=== PATIENT | female | born 1950 | race Caucasian/White ===

== ENCOUNTER 2016-12-07 08:00 | Outpatient (CLI) | payer MEDICARE, BC | END 2016-12-07 08:01 | disposition home or self-care (01) | DX: R25.1 Tremor, unspecified (principal); E72.11 Homocystinuria; I49.3 Ventricular premature depolarization ==

== ENCOUNTER 2016-12-12 10:17 | Outpatient (CLI) | payer MEDICARE, BC | END 2016-12-12 10:18 | disposition home or self-care (01) | DX: M81.0 Age-related osteoporosis without current pathological fracture (principal); N95.8 Other specified menopausal and perimenopausal disorders ==

== ENCOUNTER 2017-06-28 11:47 | Outpatient (CLI) | payer MEDICARE, BC ==
--- NOTE | 2017-06-29 11:48 | Mammography Report ---
DIGITAL SCREENING LEFT MAMMOGRAM: 06/28/2017 CLINICAL INDICATION: A 67-year-old with history of late childbearing, personal history of right breas t cancer, status post mastectomy. TECHNIQUE: Left CC, laterally exaggerated CC, and MLO views were obtained. COMPARISON: 06/2016, 04/2015, 04/2014, 04/2013, 01/2011. FINDINGS: The left breast again demonstrates heterogeneously dense fibroglandular parenchyma. Coarse , typically benign calcifications are present. No suspicious masses, clustered microcalcifications, o r regions of architectural distortion are identified. IMPRESSION: BENIGN FINDINGS. RECOMMENDATION: ROUTINE ANNUAL SCREENING UNLESS OTHERWISE CLINICALLY INDICATED. BIRADS CATEGORY 2-BENIGN FINDINGS. STANDARD QUALIFYING STATEMENTS 1. This examination was reviewed with the aid of Computer-Aided Detection (CAD). 2. A negative or benign imaging report should not delay biopsy if clinically suspicious findings are present. Consider surgical consultation if warranted. More than 5% of cancers are not identified by i maging. 3. Dense breasts may obscure an underlying neoplasm. JOB #: [id number] EXT JOB #:[id number]
== END 2017-06-28 11:48 | disposition home or self-care (01) ==
LOC: DI.S 11:47
PROVIDERS: ATTEND Physician Assistant
DX: Z12.31 Encounter for screening mammogram for malignant neoplasm of breast (principal); Z85.3 Personal history of malignant neoplasm of breast; Z08 Encounter for follow-up examination after completed treatment for malignant neoplasm

== ENCOUNTER 2018-01-05 12:57 | Outpatient (CLI) | payer MEDICARE, BC ==
--- NOTE | 2018-01-08 15:52 | DEXA Report ---
DEXA SCAN: 01/05/2018 CLINICAL INDICATION: Osteoporosis. TECHNIQUE: Dual energy x-ray absorptiometry (DXA) was performed on a [employer] system. Regions measured are the AP spine, femoral neck, and, if needed, forearm. COMPARISON: 12/12/2016. In accordance with the International Society for Clinical Densitometry (ISCD) guidelines, data from previous exams may be reanalyzed using current recommendations and techniques. This is done to allow a more accurate basis for comparison with the current study. FINDINGS Data for the lumbar spine is as follows: REGION BMD (g/cm/cm) T-SCORE Z-SCORE L1 0.829 -2.5 -1.0 L2 0.849 -2.9 -1.4 L3 0.952 -2.1 -0.5 L4 1.009 -1.6 -0.1 L1-L4 0.923 -2.1 -0.6 NOTE: All evaluable vertebrae are used for classification. Data for the hip is as follows: REGION BMD (g/cm/cm) T-SCORE Z-SCORE Neck 0.690 -2.5 -1.0 TOTAL 0.799 -1.7 -0.4 NOTE: The femoral neck or total proximal femur, whichever is lowest, is used for classification. DEXA RESULTS SUMMARY: Spine SCAN DATE AGE BMD T-SCORE BMD CHANGE VS BASELINE BMD CHANGE VS PREVIOUS 01[age]05/2018 [age] 0.923 -- 0.046* 5.2* 12/12/2016 [age] 0[age]877 -- -- -- * Denotes significant change at the 95% confidence level. Denotes dissimilar scan types or analysis methods. DEXA RESULTS SUMMARY: Total hip SCAN DATE AGE BMD T-SCORE BMD CHANGE VS BASELINE BMD CHANGE VS PREVIOUS 01/05/2018 67.7 0.799 -- 0.022 2.8 12/12/2016 66.7 0.777 -- -- -- * Denotes significant change at the 95% confidence level. Denotes dissimilar scan types or analysis methods. IMPRESSION 1. WHO CLASSIFICATION BASED ON THE INTERNATIONAL REFERENCE STANDARD IS OSTEOPOROSIS (REFERENCE LEFT FEMORAL NECK). FRACTURE RISK IS HIGH. 2. THERE HAS BEEN STATISTICALLY SIGNIFICANT INTERVAL INCREASE IN BONE MINERAL DENSITY OF THE LUMBAR SPINE FROM 12/12/2016. NO STATISTICALLY SIGNIFICANT INTERVAL CHANGE IN BONE MINERAL DENSITY OF THE LEFT HIP. RECOMMENDATION: Patients with diagnosis of osteoporosis or osteopenia should have regular bone mineral density assessment. For those eligible for Medicare, routine testing is allowed once every 2 years. Testing frequency can be increased for patients who have rapidly progressing disease or for those who are receiving medical therapy to restore bone mass. COMMENT World Health Organization (WHO) definitions for osteoporosis and osteopenia: NORMAL BMD: T-score at 1.0 or higher, fracture risk is low. OSTEOPENIA BMD: T-score between 1.0 and -2.5, fracture risk is increased. OSTEOPOROSIS BMD: T-score at 2.5 or lower, fracture risk high. National Osteoporosis Foundation recommends: 1. Obtain adequate dietary calcium (at least 1200 mg per day) and vitamin D (400 -800 international units per day). 2. Participate, as appropriate, in regular weightbearing and muscle- strengthening exercise. 3. Avoid tobacco use and reduce alcohol and caffeine intake. 4. For more detailed information see the website at www.NOF.org. TD: 01/05/2018 16:02 ARISTIDES
== END 2018-01-05 12:58 | disposition home or self-care (01) ==
LOC: DI 12:57
PROVIDERS: ATTEND Physician Assistant
DX: M81.0 Age-related osteoporosis without current pathological fracture (principal)
CPT/HCPCS: 77080

== ENCOUNTER 2018-04-19 09:35 | Day surgery (SDC) | payer MEDICARE, BC ==
[~2018-04-19 09:35] MED LIST: BRIMONIDINE 0.2% OPHTH DROPS 5 ML ONE; BSS/LIDOCAINE/EPINEPHRINE 1 ML SYRINGE ONE; EPINEPHrine 1 MG/ML AMP ONE; TIMOLOL 0.5% OPHTH DROPS ONE; TRIAMCIN/MOXIFLOX OPHTHALMIC 0.6 ML VIAL IO ONE; VANCOMYCIN OPHTHALMI 8MG/0.8ML 8 MG/0.8 ML SYRINGE IO ONE
[2018-04-19] MEDS ORDERED: KETOROLAC 0.45% OPHTH DROPS ONE (10:35)
[2018-04-19] MEDS ORDERED: PHENYLEPHRINE 2.5% OPHTH 2 ML DROPS ONE (10:35)
[2018-04-19] MEDS ORDERED: PROPARACAINE 0.5% OPHTH DROPS 15 ML ONE (10:36)
[2018-04-19] MEDS ORDERED: CYCLOPENTOLATE 1% OPHTH DROPS 2 ML ONE (10:40)
[2018-04-19] MEDS ORDERED: KETOROLAC 0.45% OPHTH DROPS RIGHTEYE ONE (10:44)
[2018-04-19] MEDS ORDERED: CYCLOPENTOLATE 1% OPHTH DROPS 2 ML RIGHTEYE ONE (10:44)
[2018-04-19] MEDS ORDERED: PHENYLEPHRINE 2.5% OPHTH 2 ML DROPS RIGHTEYE ONE (10:44)
[2018-04-19] MEDS ORDERED: PROPARACAINE 0.5% OPHTH DROPS 15 ML RIGHTEYE ONE ×2 (10:44→12:00)
[2018-04-19] MEDS ORDERED: LACTATED RINGERS 500 ML IV ONE (11:01)
[2018-04-19] MEDS ORDERED: TRIAMCIN/MOXIFLOX OPHTHALMIC 0.6 ML VIAL IO ONE (11:59)
[2018-04-19] MEDS ORDERED: CHONDR SULF/HYALURONATE SYRINGE IO ONE (12:00)
[2018-04-19] MEDS ORDERED: BRIMONIDINE 0.2% OPHTH DROPS 5 ML OPTH ONE (12:00)
[2018-04-19] MEDS ORDERED: EPINEPHrine 1 MG/ML AMP IR ONE (12:00)
[2018-04-19] MEDS ORDERED: TIMOLOL 0.5% OPHTH DROPS OPTH ONE (12:00)
[2018-04-19] MEDS ORDERED: BSS/LIDOCAINE/EPINEPHRINE 1 ML SYRINGE IO ONE (12:04)
[2018-04-19] MEDS ORDERED: MIDAZOLAM 2 MG/2 ML VIAL IVP ONE (12:08)
--- NOTE | 2018-04-19 12:37 | OPERATIVE REPORT ---
DATE OF SERVICE: 04/19/2018 Physician: Rey Haro MD PREOPERATIVE DIAGNOSIS: Visually significant cataract, right eye. This was her first cataract surgery. POSTOPERATIVE DIAGNOSIS: Visually significant cataract, right eye. PROCEDURE: Phacoemulsification with posterior chamber intraocular lens implant , right eye. SURGEON: Rey Haro MD. ANESTHESIA: Monitored anesthesia care. COMPLICATIONS: None. OPERATIVE INDICATIONS: This is a 68-year-old woman with progressive vision loss in the right eye due to 2+ nuclear sclerotic and 3+ cortical cataract. Best corrected visual acuity was 20/25 with glare to 20/100 in the right eye. INDICATIONS FOR SURGERY 1. Difficulty seeing words, closed captions, or game scores on TV. 2. Difficulty driving in low light or at night. 3. Difficulty with glare or bright lights in any situation. INFORMED CONSENT: She was consented at length concerning risks and benefits of cataract surgery, after which she expressed a desire to proceed with surgery. OPERATIVE PROCEDURE: The patient was taken into OR #3 and placed under monitored anesthesia care. A surgical timeout was conducted confirming correct patient, correct procedure, and correct surgical site. She was given topical anesthesia, then prepped and draped in usual sterile fashion. The eye was entered at the 12 and 9-o'clock positions. Intracameral Shugarcaine was injected into the anterior chamber, followed by Viscoat. A continuous-tear curvilinear capsulorrhexis was performed. The nucleus was hydrodissected and phacoemulsified. The cortex was evacuated using automated infusion aspiration. Provisc was injected in the capsular bag, and a 21.5-diopter intraocular lens inserted in the bag. Approximately 0.4 mL of vancomycin was injected subconjunctivally in the superior quadrant for infection and inflammation prophylaxis. The patient is also taking topical antibiotics and steroid drops for the same indication. I and A was used to evacuate the viscoelastic material. The eye was inflated to physiologic pressure using a balanced salt solution and found to be watertight. The patient was taken from the operating room in good condition and given postoperative instructions. TD: 04/19/2018 12:22 [facility]
[2018-04-19 12:46] VITALS: BP 132/81
== END 2018-04-19 09:36 | disposition home or self-care (01) ==
LOC: SDS 09:35
PROVIDERS: ATTEND Ophthalmology
PROC: 08RJ3JZ Replacement of Right Lens with Synthetic Substitute, Percutaneous Approach (ICD-10-PCS; principal; 2018-04-19 11:00)
DX: H25.811 Combined forms of age-related cataract, right eye (principal)
CPT/HCPCS: 66984; A9270; J3490; V2632

== ENCOUNTER 2018-05-17 06:05 | Day surgery (SDC) | payer MEDICARE, BC ==
[2018-05-17] MEDS ORDERED: PHENYLEPHRINE 2.5% OPHTH 2 ML DROPS ONE (06:34)
[2018-05-17] MEDS ORDERED: KETOROLAC 0.45% OPHTH DROPS ONE (06:34)
[2018-05-17] MEDS ORDERED: CYCLOPENTOLATE 1% OPHTH DROPS 2 ML ONE (06:34)
[2018-05-17] MEDS ORDERED: PROPARACAINE 0.5% OPHTH DROPS 15 ML ONE (06:35)
[2018-05-17] MEDS ORDERED: PROPARACAINE 0.5% OPHTH DROPS 15 ML LEFTEYE ONE ×2 (06:40→07:27)
[2018-05-17] MEDS ORDERED: CYCLOPENTOLATE 1% OPHTH DROPS 2 ML LEFTEYE ONE (06:40)
[2018-05-17] MEDS ORDERED: PHENYLEPHRINE 2.5% OPHTH 2 ML DROPS LEFTEYE ONE (06:40)
[2018-05-17] MEDS ORDERED: KETOROLAC 0.45% OPHTH DROPS LEFTEYE ONE (06:40)
[2018-05-17] MEDS ORDERED: LACTATED RINGERS 500 ML IV ONE (06:57)
[2018-05-17] MEDS ORDERED: TIMOLOL 0.5% OPHTH DROPS ONE (07:09)
[2018-05-17] MEDS ORDERED: EPINEPHrine 1 MG/ML AMP ONE (07:09)
[2018-05-17] MEDS ORDERED: BRIMONIDINE 0.2% OPHTH DROPS 5 ML ONE (07:09)
[2018-05-17] MEDS ORDERED: TRIAMCIN/MOXIFLOX OPHTHALMIC 0.6 ML VIAL IO ONE (07:09)
[2018-05-17] MEDS ORDERED: VANCOMYCIN OPHTHALMI 8MG/0.8ML 8 MG/0.8 ML SYRINGE IO ONE (07:10)
[2018-05-17] MEDS ORDERED: BSS/LIDOCAINE/EPINEPHRINE 1 ML SYRINGE ONE (07:10)
[2018-05-17] MEDS ORDERED: EPINEPHrine 1 MG/ML AMP IR ONE (07:25)
[2018-05-17] MEDS ORDERED: BRIMONIDINE 0.2% OPHTH DROPS 5 ML OPTH ONE (07:25)
[2018-05-17] MEDS ORDERED: BSS/LIDOCAINE/EPINEPHRINE 1 ML SYRINGE IO ONE (07:26)
[2018-05-17] MEDS ORDERED: CHONDR SULF/HYALURONATE SYRINGE IO ONE (07:26)
[2018-05-17] MEDS ORDERED: TIMOLOL 0.5% OPHTH DROPS OPTH ONE (07:26)
[2018-05-17] MEDS ORDERED: MIDAZOLAM 2 MG/2 ML VIAL IVP ONE (07:30)
[2018-05-17 07:52] VITALS: BP 117/59
--- NOTE | 2018-05-17 10:46 | OPERATIVE REPORT ---
DATE OF SERVICE: 05/17/2018 Physician: Rey Haro MD PREOPERATIVE DIAGNOSIS: Visually significant cataract, left eye. Cataract surgery was performed on the right eye on 04/19/2018. POSTOPERATIVE DIAGNOSIS: Visually significant cataract, left eye. Cataract surgery was performed on the right eye on 04/19/2018. PROCEDURE: Phacoemulsification with posterior chamber intraocular lens implant , left eye. SURGEON: Rey Haro MD ANESTHESIA: Monitored anesthesia care. COMPLICATIONS: None. OPERATIVE INDICATIONS: This is a 68-year-old woman with progressive vision loss in the left eye due to 2+ nuclear sclerotic and 3+ cortical cataract. Best corrected visual acuity was 20/25 with glare to 20/80 in the left eye. Indications for surgery were difficulty reading; difficulty seeing words closed caption, game scores on TV, and difficulty driving in low light or at night. She was consented at length concerning risks and benefits of cataract surgery. Afterward, she expressed a desire to proceed with surgery. OPERATIVE PROCEDURE: The patient was taken into OR #3 and placed under monitored anesthesia care. Surgical timeout was conducted, confirming correct patient, correct procedure, and correct surgical site. She was given topical anesthesia and prepped and draped in usual sterile fashion. The eye was entered at the 6 and 3 o'clock positions. Intracameral Shugarcaine was injected into the anterior chamber, followed by Viscoat. A continuous-tear curvilinear capsulorrhexis was performed. The nucleus was hydrodissected and phacoemulsified. The cortex was evacuated using automated infusion and aspiration. Provisc was injected in the capsular bag, and a 21.0 diopter intraocular lens inserted in the bag. I and A was used to evacuate the viscoelastic material. This eye was inflated to physiologic pressure using balanced salt solution and found to be watertight. The patient was taken from the operating room in good condition and given postoperative instructions. The patient had elected not to have subconjunctival injection of antibiotics and steroid, but instead is using drops 4 times a day starting the day before surgery. TD: 05/17/2018 07:55 MTDD
== END 2018-05-17 06:06 | disposition home or self-care (01) ==
LOC: SDS 06:05
PROVIDERS: ATTEND Ophthalmology
PROC: 08RK3JZ Replacement of Left Lens with Synthetic Substitute, Percutaneous Approach (ICD-10-PCS; principal; 2018-05-17 07:30)
DX: H25.812 Combined forms of age-related cataract, left eye (principal); H18.51 Endothelial corneal dystrophy
CPT/HCPCS: 66984; A9270; J3490; V2632

== ENCOUNTER 2018-07-25 13:07 | Outpatient (CLI) | payer MEDICARE, BC ==
--- NOTE | 2018-07-26 08:37 | Mammography Report ---
Reason: SCREENING MAMMO Procedure Date: 07/25/2018 Accession Number: [id number] / [id number] Procedure: DARIA - Screening Mammo Left w/Alex CPT Code: FULL RESULT: EXAM: Screening Mammo Left w/Alex DATE: 07/25/2018 1:35 PM CLINICAL HISTORY: 68-year-old female with history of late childbearing and right mastectomy. TECHNIQUE: Left CC and MLO views were obtained. COMPARISON: 06/28/2017, 06/21/2016, 05/11/2015, 05/05/2014. FINDINGS: The breasts demonstrate heterogeneously dense fibroglandular parenchyma bilaterally. Coarse typically benign calcifications are again identified. No suspicious masses, clustered microcalcifications, or regions of architectural distortion are identified. IMPRESSION: Benign findings RECOMMENDATION: Routine annual screening unless otherwise clinically indicated. BIRADS CATEGORY 2: Benign findings STANDARD QUALIFYING STATEMENTS: 1. This examination was not reviewed with the aid of Computer-Aided Detection (CAD). 2. A negative or benign imaging report should not delay biopsy if clinically suspicious findings are present. Consider surgical consultation if warrented. More than 5% of cancers are not identified by imaging. 3. Dense breasts may obscure an underlying neoplasm. 4. This examination was reviewed with the aid of 3D breast imaging (tomosynthesis).
== END 2018-07-25 13:08 | disposition home or self-care (01) ==
LOC: DI 13:07
DX: Z12.31 Encounter for screening mammogram for malignant neoplasm of breast (principal)
CPT/HCPCS: 77063

== ENCOUNTER 2018-12-20 12:00 | Outpatient (CLI) | payer MEDICARE, BC ==
--- NOTE | 2018-12-20 13:52 | MRI Report ---
Reason: PARKINSONS DISEASE,GAIT DIFFICULTY Procedure Date: 12/20/2018 Accession Number: [id number] / [id number] Procedure: MRI - Cervical Spine W/O CPT Code: FULL RESULT: EXAM: MRI CERVICAL SPINE WITHOUT CONTRAST EXAM DATE: 12/20/2018 01:05 PM. CLINICAL HISTORY: 68-year-old with history of Parkinson's disease presenting with gait difficulty and hyperreflexia. Evaluate for cervical pathology. COMPARISONS: None. TECHNIQUE: Multiplanar, multisequence T1-weighted and fluid-sensitive sequences of the cervical spine without contrast. Other: None. FINDINGS: Neurologic Structures: The visualized posterior fossa structures are unremarkable. There is flattening of the ventral aspect of the cervical cord seen at C5-C6 with no definite T2 signal hyperintensity seen within the cord at this level. Alignment: No scoliosis or spondylolisthesis. Bone Marrow: No acute fracture. There is minimal Modic type I changes seen at C5-C6 and C6-C7 that may be degenerative in nature. No abnormal marrow replacing lesion. Interspace Levels/Facets: Mild endplate degenerative change with mild loss of disk height and disk desiccation seen throughout the cervical spine. C1-C2: Unremarkable. C2-C3: Tiny to small right paracentral disk osteophyte complex. Left uncovertebral osteophyte and arthritic facet disease. No spinal canal stenosis. No definite neural foraminal narrowing. C3-C4: Tiny central disk osteophyte complex. Bilateral uncovertebral osteophyte and arthritic facet disease. No significant spinal canal stenosis. No definite neural foraminal narrowing. C4-C5: Small central disk osteophyte complex that abuts the ventral aspect of the cervical cord. Ligamentum flavum thickening. Bilateral uncovertebral osteophyte and arthritic facet disease. Moderate spinal canal stenosis. Mild to moderate bilateral neural foraminal narrowing. C5-C6: Central to left subarticular disk osteophyte complex. Ligamentum flavum thickening. Bilateral uncovertebral osteophyte and arthritic facet disease. Moderate spinal canal stenosis. Severe bilateral neural foraminal narrowing. C6-C7: Small broad-based disk osteophyte complex. Bilateral uncovertebral osteophyte and arthritic facet disease. Mild spinal canal stenosis. Mild bilateral neural foraminal narrowing. C7-T1: Unremarkable. Musculature: Normal. No edema or fatty atrophy. Other: T2 hyperintense lesion seen within the inferior left thyroid lobe measuring up to 5 mm (series 801, image 4). T2 hyperintense lesion seen within the right base of tongue projecting into the right vallecula measuring 7 x 5 x 5 mm (cc by TR by AP). IMPRESSION: 1. There is flattening of the ventral aspect of the cervical cord seen at C5-C6 with no definite T2 signal hyperintensity seen within the cord at this level. 2. Multilevel degenerative changes. C4-C5: Moderate spinal canal stenosis. Mild to moderate bilateral neural foraminal narrowing. C5-C6: Moderate spinal canal stenosis. Severe bilateral neural foraminal narrowing. C6-C7: Mild spinal canal stenosis. Mild bilateral neural foraminal narrowing. 3. T2 hyperintense lesion seen within the right base of tongue projecting into the right vallecula measuring 7 x 5 x 5 mm (cc by TR by AP). Finding may represent mucosal retention cyst or salivary cyst. Clinical correlation with direct visualization would be of use. RADIA
== END 2018-12-20 12:01 | disposition home or self-care (01) ==
LOC: DI 12:00
PROVIDERS: ATTEND Psychiatry & Neurology Neurology
DX: M50.31 Other cervical disc degeneration, high cervical region (principal); M48.02 Spinal stenosis, cervical region; G20 Parkinson's disease; R26.9 Unspecified abnormalities of gait and mobility; M47.9 Spondylosis, unspecified; K14.9 Disease of tongue, unspecified
CPT/HCPCS: 72141

== ENCOUNTER 2019-10-17 09:47 | Outpatient (CLI) | payer MEDICARE, BC ==
--- NOTE | 2019-10-18 11:15 | Mammography Report ---
Reason: SCREENING MAMMOGRAM Procedure Date: 10/17/2019 Accession Number: [id number] / [id number] Procedure: MGS - Screening Mammo Dig LT CPT Code: Final Report FULL RESULT: EXAM: Screening Mammo Dig LT DATE: 10/17/2019 10:07 AM CLINICAL HISTORY: Screening encounter. History of late childbearing and personal breast cancer history status post right mastectomy in 2012. TECHNIQUE: (L) - Left CC, laterally exaggerated CC, MLO views were obtained. COMPARISON: 07/25/2018 through 02/11/2011. PARENCHYMAL PATTERN: (D) - The breast(s) demonstrate(s) heterogeneously dense fibroglandular parenchyma. FINDINGS: There are no suspicious masses, calcifications, or areas of distortion. IMPRESSION: Negative examination. BI-RADS category 1. RECOMMENDATION: (ANNUAL) - Recommend routine annual screening mammography. BI-RADS CATEGORY: (1) - Negative. STANDARD QUALIFYING STATEMENTS: 1. This examination was reviewed with the aid of Computer-Aided Detection (CAD). 2. A negative or benign imaging report should not preclude biopsy if clinically suspicious findings are present. 3. Dense breasts may obscure an underlying neoplasm. 4. This examination was reviewed without the aid of 3D breast imaging (tomosynthesis).
== END 2019-10-17 09:48 | disposition home or self-care (01) ==
LOC: DI.S 09:47
PROVIDERS: ATTEND Physician Assistant
DX: Z12.31 Encounter for screening mammogram for malignant neoplasm of breast (principal); Z85.3 Personal history of malignant neoplasm of breast; Z90.11 Acquired absence of right breast and nipple

== ENCOUNTER 2019-12-26 10:10 | Outpatient (CLI) | payer MEDICARE, BC ==
--- NOTE | 2019-12-27 10:27 | DEXA Report ---
Reason: AGE RELATED OSTEOPOROSIS W/O Procedure Date: 12/26/2019 Accession Number: [id number] / [id number] Procedure: DEX - Dexa Spine and/or Hip CPT Code: Final Report FULL RESULT: EXAM: Dexa Spine and/or Hip DATE: 12/26/2019 10:45 AM CLINICAL HISTORY: AGE RELATED OSTEOPOROSIS W/O TECHNIQUE: Dual energy x-ray absorptiometry (DXA) was performed on a [employer] System. Regions measured are the AP Spine, femoral neck, and if needed forearm. COMPARISON: 01/05/2018 and 12/12/2016. In accordance with the International Society for Clinical Densitometry (ISCD) guidelines, data from previous exams may be reanalyzed using current recommendations and techniques. This is done to allow a more accurate basis for comparison with the current study. FINDINGS: The data for the lumbar spine is as follows: BMD (g/cm/cm) T-SCORE Z-SCORE REGION L1 0.770 -3.0 -1.4 L2 0.833 -3.1 -1.5 L3 0.925 -2.3 -0.7 L4 0.994 -1.7 -0.2 TOTAL 0.893 -2.4 -0.8 NOTE: All evaluable vertebrae are used for classification The data for the hip is as follows: BMD (g/cm/cm) T-SCORE Z-SCORE REGION Neck 0.640 -2.9 -1.2 TOTAL 0.741 -2.1 -0.7 NOTE: The femoral neck or total proximal femur, whichever is lowest, is used for classification. DXA RESULTS SUMMARY: Spine SCAN DATE AGE BMD CHANGE VS CHANGE VS PREVIOUS PREVIOUS % 11/26/2019 [age] 0.893 -0.030* -3.3* 01/05/2018 67.7 0.923 0.046 5.2 12/12/2016 66.7 0.877 * Denotes significant change at the 95% confidence level. Denotes dissimilar scan types or analysis methods. DXA RESULTS SUMMARY: Hip SCAN DATE AGE BMD CHANGE VS CHANGE VS PREVIOUS PREVIOUS % 12/26/2019 69.7 0.741 -0.058* -7.3* 01/05/2018 67.7 0.799 0.022 2.8 12/12/2016 [age] 0.777 * Denotes significant change at the 95% confidence level. Denotes dissimilar scan types or analysis methods. IMPRESSION: THE WHO CLASSIFICATION BASED ON THE INTERNATIONAL REFERENCE STANDARD IS OSTEOPOROSIS. THE FRACTURE RISK IS HIGH. Please note that interval decrease in bone density in the hip and spine are statistically significant. RECOMMENDATION: Patients with diagnosis of osteoporosis or osteopenia should have regular bone mineral density assessment. For those eligible for Medicare, routine testing is allowed once every 2 years. Testing frequency can be increased for patients who have rapidly progressing disease or for those who are receiving medical therapy to restore bone mass. COMMENT: World Health Organization (WHO) definitions for osteoporosis and osteopenia: NORMAL BMD: T-score at -1.0 or higher, fracture risk is low OSTEOPENIA BMD: T-score between -1.0 and -2.5, fracture risk is increased. OSTEOPOROSIS BMD: T-score at -2.5 or lower, fracture risk is high. National Osteoporosis Foundation recommends: 1. Obtain adequate dietary calcium (at least 1200 mg per day) and vitamin D (400-800 international units per day). 2. Participate, as appropriate, in regular weightbearing and muscle-strengthening exercise. 3. Avoid tobacco use and reduce alcohol and caffeine intake. 4. For more detailed information see the website at www.NOF.org.
== END 2019-12-26 10:11 | disposition home or self-care (01) ==
LOC: DI 10:10
PROVIDERS: ATTEND Physician Assistant
DX: M81.0 Age-related osteoporosis without current pathological fracture (principal)
CPT/HCPCS: 77080

== ENCOUNTER 2021-02-02 12:48 | Outpatient (CLI) | payer MEDICARE, BC ==
--- NOTE | 2021-02-04 11:13 | Mammography Report ---
UNILATERAL LEFT DIGITAL SCREENING MAMMOGRAM 3D/2D: 02/02/2021 CLINICAL: Routine screening. Personal history of right breast cancer. Comparison is made to exams dated: 10/17/2019 mammogram, 07/25/2018 mammogram, and 06/28/2017 mammogram - [facility]. The tissue of left breast is heterogeneously dense. This may lower the sensitivity of mammography. No significant masses, calcifications, or other findings are seen in the breast. There has been no significant interval change. IMPRESSION: NEGATIVE There is no mammographic evidence of malignancy. A 1 year screening mammogram is recommended. This exam was interpreted at Station ID: [id number]. NOTE: For mammograms, a report in lay terms will be sent to the patient. Approximately 15% of breast malignancies will not be visualized mammographically. In the management of a palpable breast mass, a negative mammogram must not discourage biopsy of a clinically suspicious lesion. Electronically Signed By: Chalo Pizarro M.D. ar/penrad:02/03/2021 13:20:18 ACR BI-RADS Category 1: Negative 3341F PARENCHYMAL PATTERN: (D) - The breast(s) demonstrate(s) heterogeneously dense fibroglandular loyda cox. BI-RADS CATEGORY: (1) - 1 RECOMMENDATION: (ANNUAL) - Recommend routine annual screening mammography. [id number] 1 year screening LATERALITY: (B)
== END 2021-02-02 12:49 | disposition home or self-care (01) ==
LOC: DI.S 12:48
PROVIDERS: ATTEND Physician Assistant
DX: Z12.31 Encounter for screening mammogram for malignant neoplasm of breast (principal); Z85.3 Personal history of malignant neoplasm of breast

== ENCOUNTER 2021-07-17 09:31 | Outpatient (CLI) | payer MEDICARE, BC ==
[2021-07-17] MEDS ORDERED: IOVERSOL 320 100 ML VIAL IVP ONE ×2 (09:43→11:00)
[2021-07-17] MEDS ORDERED: IOVERSOL 320 50 ML VIAL ONE (09:43)
[2021-07-17] MEDS ORDERED: IOVERSOL 320 50 ML VIAL PO ONE (11:00)
--- NOTE | 2021-07-17 19:29 | CT Report ---
PROCEDURE: Abdomen/Pelvis W INDICATIONS: ABD PAIN CONTRAST: IV CONTRAST: Optiray 320 ml: 100 PO CONTRAST: Optiray 320 ml50 TECHNIQUE: After the administration of contrast, 5 mm thick sections acquired from the diaphragms to the sym physis. 5 mm thick coronal and sagittal reformats were acquired. For radiation dose reduction, the following was used: automated exposure control, adjustment of mA and/or kV according to patient size . COMPARISON: None. FINDINGS: Image quality: Excellent. ABDOMEN: Lung bases: Minimal platelike atelectasis or scarring in both lung bases. Heart size is normal. Solid organs: Liver and spleen are normal in size and enhancement. Gallbladder shows cholelithiasis without CT evidence of acute cholecystitis. Biliary system is non dilated. Pancreas enhances shaheed lly. No adrenal nodules. Nonobstructive bilateral renal calculi measuring up to 4 mm. Bilateral extr arenal pelvis noted. No hydronephrosis. Peritoneum and bowel: Bowel loops demonstrate normal wall th ickness and caliber. No free fluid or air. Nodes and vessels: No retroperitoneal or mesenteric adenopathy by size criteria. Aorta and inferior vena cava are normal in size. Miscellaneous: No ventral hernias. PELVIS: Genitourinary: Bladder wall thickness is normal. Nonobstructive venous thrombosis noted in several left-sided uterine veins, best depicted on image 6/18 coronal. Slight instillation could reflect pelv ic congestion syndrome. Miscellaneous: No inguinal hernias or adenopathy. Bones: No suspicious bony lesions. No vertebral body compression fractures. IMPRESSION: 1. No evidence of vascular lesion. No acute findings. 2. Incidental nonocclusive venous thrombosis left sided uterine veins. Several dilated uterine veins bilaterally could reflect pelvic congestion syndrome. 3. Cholelithiasis without CT evidence of acute cholecystitis Reviewed by: Jason Murray MD on 07/17/2021 6:27 PM AKDAVID Approved by: Jason Murray MD on 07/17/2021 6:27 PM AKDAVID Station ID: [id number]
== END 2021-07-17 09:32 | disposition home or self-care (01) ==
LOC: DI 09:31
PROVIDERS: ATTEND Registered Nurse
DX: K80.20 Calculus of gallbladder without cholecystitis without obstruction (principal)
CPT/HCPCS: 74177; Q9967

== ENCOUNTER 2021-07-20 12:44 | Outpatient (CLI) | payer MEDICARE, BC ==
--- NOTE | 2021-07-21 12:29 | DEXA Report ---
PROCEDURE: Dexa Spine and/or Hip INDICATIONS: OSTEOPOROSIS TECHNIQUE: Dual energy x-ray absorptiometry (DXA) was performed on a [employer] System. Regions measur ed are the AP Spine, femoral neck, and if needed forearm. COMPARISON: 12/26/2019, 01/05/2018. FINDINGS: Lumbar Spine: Bone Mineral Density L1-L4 0.898 g/cm/cm,T score: -2.4, Z score: -0.7 Left Hip: Bone Mineral Density 0.758 g/cm/cm,T score: -2.0, Z score: -0.5 Left Femoral Neck: Bone Mineral Density 0.625 g/cm/cm, T score: -3.0, Z score: -1.2 (T score greater or equal to -1.0: NORMAL) (T score from -1.1 to -2.4: OSTEOPENIA) (T score less than or equal to -2.5 to: OSTEOPOROSIS) Impression: 1. Findings consistent with osteoporosis in the left femoral neck and osteopenia in the spine redemon strated. No significant interval change compared to the prior study. Patients with diagnosis of osteoporosis or osteopenia should have regular bone mineral density assess ment. For those eligible for Medicare, routine testing is allowed once every 2 years. Testing frequ ency can be increased for patients who have rapidly progressing disease or for those who are receivin g medical therapy to restore bone mass. Reviewed by: Jake Arthur MD on 07/21/2021 12:28 PM PDT Approved by: Jake Arthur MD on 07/21/2021 12:28 PM PDT Station ID: [id number]
== END 2021-07-20 12:45 | disposition home or self-care (01) ==
LOC: DI 12:44
PROVIDERS: ATTEND Registered Nurse
DX: M81.0 Age-related osteoporosis without current pathological fracture (principal)

== ENCOUNTER 2023-05-17 08:45 | Outpatient (CLI) | payer MEDICARE, BC ==
--- NOTE | 2023-05-18 09:20 | Mammography Report ---
UNILATERAL LEFT DIGITAL SCREENING MAMMOGRAM 3D/2D WITH EXAGGERATED CC: 05/17/2023 CLINICAL: Routine screening. Personal history of right breast cancer. Comparison is made to exams dated: 05/24/2022 mammogram, 02/02/2021 mammogram, 10/17/2019 mammogram, and 07/25/2018 mammogram - [facility]. The left breast is heterogeneously dense, which may obscure small masses (category c / 51-75% glandul ar tissue). No significant masses, calcifications, or other findings are seen in the breast. There has been no significant interval change. IMPRESSION: NEGATIVE There is no mammographic evidence of malignancy. A 1 year screening mammogram is recommended. Future imaging is recommended as follows: 05/25/2023 screening mammogram. This exam was interpreted at Station ID: [id number]. NOTE: For mammograms, a report in lay terms will be sent to the patient. Approximately 15% of breast malignancies will not be visualized mammographically. In the management of a palpable breast mass, a negative mammogram must not discourage biopsy of a clinically suspicious lesion. Electronically Signed By: Joan garcia/mayra:05/17/2023 16:15:42 letter sent: No_Letter ACR BI-RADS Category 1: Negative 3341F PARENCHYMAL PATTERN: (D) - The breast(s) demonstrate(s) heterogeneously dense fibroglandular loyda cox. BI-RADS CATEGORY: (1) - 1 Mammogram [id number] 1 year screening LATERALITY: (B)
== END 2023-05-17 08:46 | disposition home or self-care (01) ==
LOC: DI.S 08:45
PROVIDERS: ATTEND Physician Assistant
DX: Z12.31 Encounter for screening mammogram for malignant neoplasm of breast (principal); Z85.3 Personal history of malignant neoplasm of breast

== ENCOUNTER 2024-06-22 14:01 | Outpatient (CLI) | payer MEDICARE, BC | END 2024-06-22 23:59 | disposition critical access hospital (66) | LOC: EMS 14:01 | PROVIDERS: ATTEND Emergency Medicine | DX: M25.552 Pain in left hip (principal); W18.39XA Other fall on same level, initial encounter; Y93.01 Activity, walking, marching and hiking; Y92.009 Unspecified place in unspecified non-institutional (private) residence as the place of occurrence of the external cause | CPT/HCPCS: A0425; A0429 ==

== ENCOUNTER 2024-06-22 14:38 | Emergency (ER) | payer MEDICARE, BC ==
--- NOTE | 2024-06-22 14:46 | ED Physician Documentation ---
PD HPI LOWER EXT INJURY - Stated complaint Stated Complaint: LT HIP PX - History obtained from History obtained from: Patient, EMS (EMS called in we do not have Ortho on-call so we attempted to divert them. They states the patient refused transfer elsewhere except to would be health. The medics felt they were not able to divert.) - History of Present Illness PD HPI LOW EXT INJURY LOCATION: Left, Hip, Buttock Type of injury: Fall (she has Parkinsons and her legs are stiff at times when first gets up, as was this time, and she lost balance, falling to left side. Hip pain and gluteal area pain with trying to stand. No oher injuries.) Where injury occurred: Home Timing - onset: Today Timing - details: Abrupt onset, Still present Worsened by: Moving, Palpating (more to lateral aspect) Associated symptoms: No: Weakness, Numbness Similar symptoms before: Has not had sx before Review of Systems Skin: denies: Abrasion (s), Laceration (s) Neurologic: denies: Focal weakness, Numbness, Altered mental status, Head injury, LOC PD PAST MEDICAL HISTORY - Past Medical History Cardiovascular: Atrial fibrillation Respiratory: None Endocrine/Autoimmune: None GI: None : Kidney stones HEENT: Chronic vision loss Psych: None Musculoskeletal: Osteoporosis Derm: None - Past Surgical History General: Appendectomy, Bowel surgery /[employer]: section, Mastectomy HEENT: Cataracts - Present Medications Home Medications: Ambulatory Orders Medication Instructions Recorded Confirmed Calcium Carbonate [Calcium] 600 mg PO DAILY 04/17/18 06/22/24 Cholecalciferol (Vitamin D3) 2,000 unit PO DAILY 04/17/18 06/22/24 [Vitamin D] Magnesium Oxide [Magnesium] 250 mg PO DAILY 18 06/22/24 [place]-3/Dha/Epa/Fish Oil [Fish Oil 1 each PO DAILY 04/17/18 06/22/24 1,000 mg Softgel] Carbidopa/Levodopa [Sinemet 25-100 1 each PO QID 06/22/24 06/22/24 mg Tablet] - Allergies Allergies/Adverse Reactions: Allergies Allergy/AdvReac Type Severity Reaction Status Date / Time ciprofloxacin Allergy shoulder Verified 06/22/24 14:41 tendon pain nickel Allergy Rash Verified 06/22/24 14:41 PD ED PE NORMAL - Vitals Vital signs reviewed: Yes - General General: Alert and oriented X 3, No acute distress, Well developed/nourished - HEENT HEENT: Atraumatic - Neck Neck: Supple, no meningeal sign, No bony TTP, No adenopathy - Cardiac Cardiac: RRR, No murmur - Respiratory Respiratory: No respiratory distress, Clear bilaterally, Other (no chestwall tenderness) - Abdomen Abdomen: Soft, Non tender - Derm Derm: Normal color, Warm and dry - Extremities Extremities: Other (left hip with tenderness laterally but pain in hip joint itself with impaction testing and roational. Some tender in ramus of gluteal area. ) - Neuro Neuro: Alert and oriented X 3, No motor deficit, No sensory deficit Eye Opening: Spontaneous Motor: Obeys Commands Verbal: Oriented GCS Score: 15 Results - Vitals Vitals: Vital Signs - 24 hr 06/22/24 06/22/24 06/22/24 14:41 15:09 17:43 Temperature 37 C 36.8 C Heart Rate 79 81 80 Respiratory 16 16 16 Rate Blood Pressure 153/78 H 170/81 H 155/80 H O2 Saturation 99 99 98 Oxygen O2 Source Room air - EKG (time done) 16:23 EKG releavant findings:: EKG personally interpreted by author of this note. Relevant findings are: Rate: Rate (enter#) (81) Rhythm: NSR [place]: Normal Intervals: Normal VT QRS: Normal Ischemia: Normal ST segments. No: ST elevation c/w ischemia, ST depression - Labs Labs: Laboratory Tests 06/22/24 06/22/24 06/22/24 16:22 16:22 16:22 WBC 12.6 H RBC 4.98 Hgb 14.6 Hct 45.2 MCV 90.8 MCH 29.3 MCHC 32.3 RDW 12.8 Plt Count 243 MPV 9.6 Neut # (Auto) 10.6 H Lymph # (Auto) 1.0 L [place] # (Auto) 0.8 Eos # (Auto) 0.1 Baso # (Auto) 0.1 Absolute Nucleated RBC 0.00 Nucleated RBC % 0.0 PT 10.5 INR 0.9 Sodium 143 Potassium 3.8 Chloride 108 Carbon Dioxide 27 Anion Gap 8.0 BUN 18 Creatinine 0.8 Estimated GFR (MDRD) 70 L Glucose 104 Calcium 9.7 Total Bilirubin 0.4 AST 19 ALT 11 Alkaline Phosphatase 50 Total Protein 6.5 Albumin 4.6 Globulin 1.9 L Albumin/Globulin Ratio 2.4 H Lipase 87 H Urine Color Urine Clarity Urine pH Ur Specific [place] Urine Protein Urine Glucose (UA) Urine Ketones Urine Occult Blood Urine Nitrite Urine Bilirubin Urine Urobilinogen Ur Leukocyte Esterase Urine RBC Urine WBC Ur Squamous Epith Cells Urine Bacteria Ur Microscopic Review Urine Culture Comments 06/22/24 16:32 WBC RBC Hgb Hct MCV MCH MCHC RDW Plt Count MPV Neut # (Auto) Lymph # (Auto) [place] # (Auto) Eos # (Auto) Baso # (Auto) Absolute Nucleated RBC Nucleated RBC % PT INR Sodium Potassium Chloride Carbon Dioxide Anion Gap BUN Creatinine Estimated GFR (MDRD) Glucose Calcium Total Bilirubin AST ALT Alkaline Phosphatase Total Protein Albumin Globulin Albumin/Globulin Ratio Lipase Urine Color YELLOW Urine Clarity HAZY Urine pH 7.0 Ur Specific [place] 1.010 Urine Protein NEGATIVE Urine Glucose (UA) NEGATIVE Urine Ketones TRACE Urine Occult Blood TRACE-INTA Urine Nitrite POSITIVE H Urine Bilirubin NEGATIVE Urine Urobilinogen 0.2 (NORMAL) Ur Leukocyte Esterase SMALL H Urine RBC 0-5 Urine WBC 4-5 Ur Squamous Epith Cells RARE Squamous Urine Bacteria Many H Ur Microscopic Review INDICATED Urine Culture Comments INDICATED - Rads (name of study) CT pelvis Relevant Findings:: Prelim report reviewed, EMP independent interpretation of te st (left femoral neck fractue, minimally displaced.) PD Medical Decision Making - ED course Complexity details: reviewed results, considered differential (The patient states her leg was stiff when she first got up causing her balance to be off and fell to the left with a twisting of her left hip and impact to it. Denies injury to the chest head or neck. Pain in the lateral left hip and hurts with attempted weightbearing.), d/w patient, d/w strategic solutions consultant (Ortho at [facility] - Dr. Abraham, who graciously accepted transfer of the patient despite not being aviation neuropsychologist for our facility. ) Reviewed Lab Results: urine result was not noted/resulted at time I had talked with Ortho or patient transferred. Will have nursing call facility to ensure it is noted. ED course: The patient arrives via EMS with a fall and left hip pain. She localizes it more to the lateral aspect of the hip though hurts with impaction and rotation and was unable to fully bear weight because of pain. EMS had called and on report. We do not have Ortho on-call for the next 3-4 4 days and so we att empted diversion. The I talked to the medic himself and he states the patient refused to be transported off [place]. As such they are bringing her here. On exam the patient has suspicion for hip injury though her tenderness is a little bit more lateral and some posterior so consideration of ramus or pelvic structures as well. As such I opted for CT scan initially to be encompassing of both the hip joint as well as the remaining of the pelvis. The CT scan is showing a femoral neck fracture minimally displaced. No other obvious bony abnormalities. I talked with the patient about the findings as well as her son who is bedside. I affirmed that we do not have Ortho on-call for at least 3 days and then unclear what the surgical timing could be even after that. As such it would be appropriate care foot to transfer the patient [place]. We will start with every as that is where she gets most of her care at the [facility]. Will expand the search from there. She is otherwise fairly healthy with Parkinson's but no blood thinners or underlying other conditions so hopefully a fairly simple bed status need for just general orthopedics. Departure - Departure Disposition: 02 Transfer Acute Care Hosp Clinical Impression: UTI (urinary tract infection) Fall from slip, trip, or stumble Qualifiers: Encounter type: initial encounter Qualified Code(s): W01.0XXA - Fall on same level from slipping, tripping and stumbling without subsequent striking against object, initial encounter Femoral neck fracture Qualifiers: Encounter type: initial encounter Fracture type: closed Laterality: left Qualified Code(s): S72.002A - Fracture of unspecified part of neck of left femur, initial encounter for closed fracture Condition: Stable Record reviewed to determine appropriate education?: Yes Forms: PCP List Discharge Date/Time: 06/22/24 18:37
--- NOTE | 2024-06-22 15:17 | CT Report ---
PROCEDURE: Pelvis WO INDICATIONS: fall with left lateral/posterior hip pain TECHNIQUE: Noncontrast 3 mm axial sections acquired through the bony pelvis, with coronal and sagittal reformatt ing. For radiation dose reduction, the following was used: automated exposure control, adjustment of mA and/or kV according to patient size. COMPARISON: None. FINDINGS: Image quality: Excellent. Bones: There is a fracture of the left femoral neck with mild impaction. No other fracture is identi fied. Mineralization is normal. There is no underlying lucent lesion. Soft tissues: Soft tissues are unremarkable without focal fluid collection or significant joint effu evin. Visible portions of the pelvic organs show large stool burden with postsurgical changes of the cecum. IMPRESSION: 1. Left femoral neck fracture in near-anatomic alignment. 2. Chronic constipation with large stool burden. Reviewed by: Rosa Santos MD on 06/22/2024 2:16 PM ROBERT Approved by: Rosa Santos MD on 06/22/2024 2:16 PM [id number] Station ID: [id number]
[2024-06-22 16:38] LABS: BILIRUBIN,URINE NEGATIVE (NEGATIVE); GLUCOSE, URINE (UA) NEGATIVE (NEGATIVE); KETONES,URINE (UA) TRACE mg/dL (NEGATIVE); LEUKOCYTE ESTERASE, URINE SMALL (NEGATIVE); NITRITE,URINE POSITIVE (NEGATIVE); OCCULT BLOOD,URINE TRACE-INTA (NEGATIVE); PROTEIN,URINE NEGATIVE (NEGATIVE); UROBILINOGEN,URINE 0.2 (NORMAL) E.U./dL (NORMAL)
[2024-06-22 16:38] LABS: BASOPHILS # (AUTO) 0.1 10^3/uL (0.0-0.1); BASOPHILS % (AUTO) 0.4 %; EOSINOPHILS # (AUTO) 0.1 10^3/uL (0.0-0.7); EOSINOPHILS % (AUTO) 0.6 %; HCT - HEMATOCRIT 45.2 % (37.0-47.0); HGB - HEMOGLOBIN 14.6 g/dL (12.0-16.0); LYMPHOCYTES % (AUTO) 7.8 %; MEAN CORPUSCULAR HEMOGLOBIN 29.3 pg (27.0-31.0); MEAN CORPUSCULAR HGB CONC 32.3 g/dL (32.0-36.0); MEAN CORPUSCULAR VOLUME 90.8 fL (81.0-99.0); MEAN PLATELET VOLUME 9.6 fL (7.9-10.8); MONOCYTES # (AUTO) 0.8 10^3/uL (0.0-1.0); MONOCYTES % (AUTO) 6.2 %; NEUTROPHILS # (AUTO) 10.6 10^3/uL (1.5-6.6); NEUTROPHILS % (AUTO) 84.5 %; PLT - PLATELET COUNT 243 10^3/uL (130-450); RED BLOOD COUNT 4.98 10^6/uL (4.20-5.40); RED CELL DISTRIBUTION WIDTH 12.8 % (12.0-15.0); WHITE BLOOD COUNT 12.6 x10^3/uL (4.8-10.8)
[2024-06-22 16:40] LABS: CLARITY,URINE HAZY (CLEAR)
[2024-06-22 16:44] LABS: INR 0.9 (0.8-1.2); PT - PROTHROMBIN TIME 10.5 secs (9.9-12.6)
[2024-06-22 16:45] LABS: BACTERIA,URINE Many /HPF (None Seen); RBC,URINE 0-5 /HPF (0-5); SQUAMOUS EPITHELIAL CELL,UR RARE Squamous (<= Few)
[2024-06-22 16:46] LABS: ALBUMIN 4.6 g/dL (3.2-5.5); ALBUMIN/GLOBULIN RATIO 2.4 (1.0-2.2); BILIRUBIN,TOTAL 0.4 mg/dL (0.2-1.0); CALCIUM 9.7 mg/dL (8.5-10.3); CREATININE 0.8 mg/dL (0.6-1.3); POTASSIUM 3.8 mmol/L (3.5-4.5); TOTAL PROTEIN 6.5 g/dL (6.4-8.9)
--- NOTE | 2024-06-22 17:13 | XRAY Report ---
PROCEDURE: Chest 1V INDICATIONS: chest pain TECHNIQUE: One view of the chest was acquired. COMPARISON: None. FINDINGS: Surgical changes and devices: None. Lungs and pleura: No pleural effusions or pneumothorax. Lungs are clear. Mediastinum: Mediastinal contours appear normal. Heart size is normal. Bones and chest wall: No suspicious bony lesions. Overlying soft tissues appear unremarkable. IMPRESSION: No acute cardiopulmonary process. Reviewed by: Rosa Santos MD on 06/22/2024 4:11 PM ROBERT Approved by: Rosa Santos MD on 06/22/2024 4:11 PM ROBERT Station ID: [id number]
[2024-06-22 17:49] VITALS: BP 155/80; O2SAT 98
== END 2024-06-22 18:37 | disposition short-term general hospital (02) ==
LOC: EDUNIT# → ED 14:38 → SUPCPDRO 14:38 → ED 18:37
DX: S72.002A Fracture of unspecified part of neck of left femur, initial encounter for closed fracture (principal); W01.0XXA Fall on same level from slipping, tripping and stumbling without subsequent striking against object, initial encounter; N39.0 Urinary tract infection, site not specified; I48.91 Unspecified atrial fibrillation; G20.A1 Parkinson's disease without dyskinesia, without mention of fluctuations; Z79.899 Other long term (current) drug therapy
CPT/HCPCS: 36415; 80053; 81001; 81003; 83690; 85025; 85610; 87077; 87086; 87181; 93005; 99285

== ENCOUNTER 2024-06-22 18:16 | Outpatient (CLI) | payer MEDICARE, BC | END 2024-06-22 23:59 | disposition short-term general hospital (02) | LOC: EMS 18:16 | PROVIDERS: ATTEND Emergency Medicine | DX: S72.002A Fracture of unspecified part of neck of left femur, initial encounter for closed fracture (principal); W18.30XA Fall on same level, unspecified, initial encounter; Y92.009 Unspecified place in unspecified non-institutional (private) residence as the place of occurrence of the external cause | CPT/HCPCS: A0425; A0426 ==